=== PATIENT | male | born 1955 | race Caucasian/White ===

== ENCOUNTER 2019-05-21 12:19 | Emergency (ER) | payer BC, OTHER ==
[2019-05-21] MEDS ORDERED: HYDROcodone/Acetaminophen 10/325 mg Tablet ONE (12:30)
--- NOTE | 2019-05-21 12:42 | RAD ---
XR Chest 1 View Portable HISTORY: Trauma, chest pain COMPARISON: 05/25/2016 FINDINGS: The heart size is normal. The lungs are well expanded without focal areas of consolidation, pneumothorax or pleural effusions. IMPRESSION: No radiographic evidence of acute cardiopulmonary process.
== END 2019-05-21 13:08 | disposition home or self-care (01) ==
LOC: ERS 12:19
DX: T20.00XA Burn of unspecified degree of head, face, and neck, unspecified site, initial encounter (principal); I10 Essential (primary) hypertension; Z79.899 Other long term (current) drug therapy; X10.2XXA Contact with fats and cooking oils, initial encounter
CPT/HCPCS: 71045

== ENCOUNTER 2020-06-02 14:49 | Emergency (ER) | payer BC, OTHER ==
--- NOTE | 2020-06-02 15:45 | CT ---
CT BRAIN WITHOUT CONTRAST: HISTORY: Fall, headache, hematoma above the left eyebrow FINDINGS: No evidence of acute infarct, hemorrhage, midline shift or abnormal extra-axial fluid collections is seen. There are changes of chronic small vessel ischemic disease. The ventricular size is appropriate and the basilar cisterns are patent. The bony calvarium is intact. The visualized paranas al sinuses and mastoid air cells are well aerated except for mild mucosal disease in the sphenoid sinus.. There is a soft tissue hematoma in the left periorbital region. IMPRESSION: No CT evidence of acute intracranial process.
--- NOTE | 2020-06-02 16:06 | RAD ---
XR Shoulder Rt 3 View STANDARD HISTORY: Fall, right shoulder pain FINDINGS: No fracture or dislocation is identified.
--- NOTE | 2020-06-02 16:06 | RAD ---
XR Shoulder Lt 3 View STANDARD HISTORY: Fall, left shoulder pain FINDINGS: No fracture or dislocation is identified.
--- NOTE | 2020-06-02 16:14 | CT ---
EXAM: CT cervical spine PROVIDED CLINICAL HISTORY: Injury after fall. History of previous spine injury. TECHNIQUE: Contiguous axial CT images are obtained through the cervical spine from the skull base to the T2-3 le marcus. Sagittal and coronal reformatted images are provided. COMPARISON: None FINDINGS: No evidence for fracture or traumatic subluxation. Multilevel degenerative changes are seen throughout the cervical spine with disc osteophyte complexes and facet hypertrophic changes at multiple levels. Findings result in moderate left and severe right-sided neural foraminal narrowing at C3-4, severe right-sided neural foraminal narrowing at C4-5 , and mild to moderate left-sided neural foraminal narrowing at C6-7 levels. There is effacement of the ventral subarachnoid space at multiple levels with greater degree of posterior osteophyte formati on at C6-7 level likely encroaching on the anterior aspect of the spinal cord. No prevertebral soft tissue swelling apparent. Symmetric biapical pleural and parenchymal scarring is seen. Visualized thyroid gland demonstrates a grossly normal nonenhanced CT appearance. IMPRESSION: Multilevel degenerative changes of the cervical spine without acute fracture or traumatic subluxation seen..
[2020-06-02 16:23] LABS: #Eosinphils 0.1 thou/uL (0.0-0.7); #Lymphocytes 1.2 thou/uL (1.20-3.40); #Monocytes 0.6 thou/uL (0.11-0.59); #Neutrophils 4.5 thou/uL (1.40-6.50); %Basophils 0.1 % (0.0-1.0); %Eosinophils 1.4 % (0.0-10.0); %Lymphocytes 18.6 % (21.0-51.0); %Monocytes 9.5 % (0.0-10.0); %Neutrophils 70.4 % (42.0-75.0); Mean Corpuscular Hemoglobin 31.8 pg (27.0-31.0); Mean Corpuscular Volume 96.2 fL (78.0-98.0); Mean Platelet Volume 6.6 fL (7.4-10.4); Platelet Count 256 thou/uL (130-400); RBC Distribution Width 12.2 % (11.5-14.5); Red Blood Cell (RBC) Count 4.73 mill/uL (4.70-6.10); White Blood Cell (WBC) Count 6.3 thou/uL (4.8-10.8)
[2020-06-02 16:44] LABS: ALT (SGPT) 21 U/L (8-55); AST (SGOT) 22 U/L (5-34); Albumin 4.4 g/dL (3.4-4.8); Alkaline Phosphatase 83 U/L (40-110); Anion Gap 13 mmol/L (10-20); BUN (Urea Nitrogen) 26 mg/dL (8.4-25.7); Bilirubin, Total 0.5 mg/dL (0.2-1.2); Calc. Creatinine Clearance 0 mL/min (70-130); Calcium 9.5 mg/dL (7.8-10.44); Carbon Dioxide 28 mmol/L (23-31); Chloride 100 mmol/L (98-107); Estimated GFR-MDRD 59; Globulin 3.1 g/dL (2.4-3.5); Glucose 106 mg/dL (80-115); Potassium 4.6 mmol/L (3.5-5.1); Protein, Total 7.5 g/dL (5.8-8.1); Sodium 136 mmol/L (136-145)
[2020-06-02] MEDS ORDERED: HYDROcodone/Acetaminophen 10/325 mg Tablet ONE (17:25)
[2020-06-02] MEDS ORDERED: Bacitracin 1 PK ONE (17:25)
== END 2020-06-02 17:33 | disposition home or self-care (01) ==
LOC: ERS 14:49
DX: S05.10XA Contusion of eyeball and orbital tissues, unspecified eye, initial encounter (principal); M25.511 Pain in right shoulder; M25.512 Pain in left shoulder; W19.XXXA Unspecified fall, initial encounter
CPT/HCPCS: 36415; 70450; 72125; 80053; 85025; 86850; 86900; 86901

== ENCOUNTER 2020-08-04 07:17 | Outpatient (CLI) | payer OTHER ==
--- NOTE | 2020-08-04 10:16 | MRI ---
MRI RIGHT SHOULDER WITHOUT CONTRAST: HISTORY: Strain of right shoulder. COMPARISON: Shoulder radiograph of 06/02/2020. FINDINGS: Biceps Tendon: High-grade intraarticular tendinosis and interstitial tearing. Labrum: Volume loss and blunting of the superior labrum with intrasubstance tearing anterior-posteri or to the biceps labral expansion. There is maceration of the entire posterior labrum. The inferior labrum was also torn. Rotator Cuff: There is mild bursal surface fraying and partial tearing, less than 20%, throughout the supraspinatus and infraspinatus tendons. There is also low-grade articular surface partial tearing throughout the supraspinatus tendon at the critical zone, less than 25% thickness. Subscapularis is relatively int act. No full-thickness rotator cuff perforation. Bones: There are stress changes of the posterior glenoid. There is ossification of the posterior labral per iosteum. Subcortical cysts of the posterior glenoid. Type I acromion. Minimal lateral downsloping. Moderate degenerative disease at the acromioclavicula r joint, age appropriate. No acute fracture. Muscles: No significant muscle atrophy. No myotendinous stranding. Soft Tissues: There is a mildly thickened axillary pouch. Cartilage: High-grade chondral loss of the posterior inferior glenoid and adjacent humeral head. IMPRESSION: 1. Moderate osteoarthrosis of the glenohumeral with high-grade chondral loss of the posterior inferi or quadrant of the glenoid and adjacent humeral head, stress changes, osteophyte formation, and ossif ication of the posterior inferior labral periosteum which appears to have been stripped at some point . 2. Volume loss superiorly from intrasubstance tear anterior-posterior to the biceps labral expansion . 3. High-grade intraarticular tendinosis biceps tendon with interstitial tearing. 4. Less than 25% bursal surface fraying of the supraspinatus and infraspinatus tendon as well as und ersurface partial tearing of the critical zone supraspinatus tendon. No full-thickness perforation. 5. Age-appropriate moderate degenerative disease acromioclavicular joint. 6. No muscle atrophy. POS: HOME
== END 2020-08-04 07:18 | disposition home or self-care (01) ==
LOC: BICMRI 07:17
PROVIDERS: ATTEND Family Medicine
DX: S46.911D Strain of unspecified muscle, fascia and tendon at shoulder and upper arm level, right arm, subsequent encounter (principal); M19.011 Primary osteoarthritis, right shoulder; M75.81 Other shoulder lesions, right shoulder